=== PATIENT | male | born 1965 | race Caucasian/White ===

== ENCOUNTER 2018-02-02 15:06 | Emergency (ER) | payer MEDICARE, MEDICAID ==
[~2018-02-02] VITALS: Ht 182.9 cm; Wt 107.5 kg
[2018-02-02 15:10] VITALS: BP 148/101
[2018-02-02] MEDS ORDERED: dexamethasone sod phosphate 10mg/ml inj IM STA (15:29)
[2018-02-02] MEDS ORDERED: diazepam 5mg tablet PO ONE (15:30)
[2018-02-02] MEDS ORDERED: ketorolac tromethamine 15mg/ml inj. IM ONE (15:30)
[2018-02-02] MEDS ORDERED: NAPR-56 PO (15:32)
[2018-02-02] MEDS ORDERED: METH-360 PO (15:32)
== END 2018-02-02 15:47 | disposition home or self-care (01) ==
LOC: ER 15:08
DX: M54.5 Low back pain (principal); G89.29 Other chronic pain; Z79.899 Other long term (current) drug therapy; X50.1XXA Overexertion from prolonged static or awkward postures, initial encounter; Y93.89 Activity, other specified; Y92.89 Other specified places as the place of occurrence of the external cause; Y99.8 Other external cause status
CPT/HCPCS: 96372; 99284; J1100; J1885